=== PATIENT | male | born 1965 | race African-American/Black ===

== ENCOUNTER 2021-10-27 17:24 | Inpatient (IN) | payer SELFPAY ==
[~2021-10-27] VITALS: Ht 182.9 cm; Wt 64.0 kg
[~2021-10-27 17:24] MED LIST: AMLO10TA4 PO; ASPI-1497 PO; CLOP-31 PO; GLYB5TAB7 PO; HYDR100T26 PO; LISI-652 PO; LISI2.5T47 PO; METO25TA6 PO; METO50TA95 PO; PRAV20TA PO
[2021-10-27] MEDS ORDERED: METOCLOPRAMIDE HCL 10MG/2ML VIAL IV ONE (17:45)
[2021-10-27] MEDS ORDERED: DIPHENHYDRAMINE 12.5MG/5ML UDC PO ONE (17:45)
[2021-10-27] MEDS ORDERED: ASPIRIN 325MG EC TABLET PO ONE (18:00)
[2021-10-27 18:25] LABS: HEMATOCRIT. 35.8 % (42.0-52.0); HEMOGLOBIN. 11.4 g/dL (14.0-18.0); MEAN CORPUSCULAR HEMOGLOBIN 26.7 pg (28.0-32.0); MEAN CORPUSCULAR VOLUME 83.7 fL (80.0-94.0); MEAN PLATELET VOLUME 10.4 fl (7.4-10.4); PLATELET 157 x1000/uL (130-400); RED BLOOD CELL COUNT 4.28 mill/uL (4.7-6.1); RED CELL DISTRIBUTION WIDTH 14.1 % (11.6-14.6)
[2021-10-27 18:35] LABS: CHLORIDE 103 mEq/L (98-107)
[2021-10-27 18:39] LABS: ETHANOL BLOOD < 10 mg/dL
[2021-10-27 19:24] LABS: PLATELET ESTIMATE NORMAL
[2021-10-27] MEDS ORDERED: NICARDIPINE 100 MG in SODIUM CHLORIDE 0.9% 60 ML IV ONE (20:15)
[2021-10-27 20:40] LABS: CLARITY URINE CLEAR (CLEAR); COLOR URINE YELLOW (YELLOW); KETONES URINE 1+ (NEGATIVE); LEUKOCYTE ESTERASE URINE NEGATIVE (NEGATIVE); NITRITE URINE NEGATIVE (NEGATIVE); OCCULT BLOOD URINE 2+ (NEGATIVE); PH URINE 5.5 (4.5-8.0); PROTEIN URINE 4+ (NEGATIVE); SPECIFIC GRAVITY URINE 1.026 (1.005-1.030); UROBILINOGEN URINE 0.2 E.U./dL (0.2-1.0)
[2021-10-27 21:07] LABS: *AMPHETAMINES SCREEN URINE NEGATIVE (NEGATIVE); *BARBITURATES SCREEN URINE NEGATIVE (NEGATIVE); *BENZODIAZEPINES SCREEN URINE NEGATIVE (NEGATIVE); *COCAINE SCREEN URINE NEGATIVE (NEGATIVE); METHADONE URINE SCREEN NEGATIVE (NEGATIVE); OPIATES URINE SCREEN NEGATIVE (NEGATIVE)
[2021-10-27 21:08] LABS: CANNABINOID URINE SCREEN NEGATIVE (NEGATIVE); PHENCYCLIDINE URINE SCREEN NEGATIVE (NEGATIVE)
[2021-10-27] MEDS ORDERED: LACTATED RINGERS 1,000 ML IV SCH ×2 (22:30)
[2021-10-28] MEDS ORDERED: INSULIN REGULAR (HUMULIN R) 300UNITS/3ML VIAL IV ONE (00:15)
[2021-10-28] MEDS ORDERED: GUAIFENESIN 200MG/10ML SUGAR FREE UDC PO PRN (06:00)
[2021-10-28] MEDS ORDERED: SODIUM CHLORIDE 0.9% 1,000 ML IV SCH (06:00)
[2021-10-28] MEDS ORDERED: MAGNESIUM/ALUMINUM HYDROXIDE/SIMETHICONE 30ML UDC PO PRN (06:00)
[2021-10-28] MEDS ORDERED: DOCUSATE SODIUM 100MG CAPSULE PO PRN (06:00)
[2021-10-28] MEDS ORDERED: ACETAMINOPHEN 325MG TABLET PO PRN (06:00)
[2021-10-28] MEDS ORDERED: HYDROCODONE/ACETAMINOPHEN 5/325MG TABLET PO PRN (06:00)
[2021-10-28] MEDS: AMLODIPINE 10MG TABLET PO SCH (06:48)
[2021-10-28] MEDS: CLONIDINE 0.1MG TABLET PO PRN (07:51)
[2021-10-28] MEDS ORDERED: DEXTROSE 50% WATER 50ML SYRINGE IV PRN (09:00)
[2021-10-28] MEDS ORDERED: INSULIN GLARGINE UD 100 UNITS/ML SYR SUBCUT SCH (10:00)
[2021-10-28] MEDS: ENOXAPARIN 40MG/0.4ML SYR SUBCUT SCH (10:11)
[2021-10-28] MEDS: ASPIRIN 81MG EC TABLET PO SCH (10:12)
[2021-10-28 10:45] VITALS: BP 204/115
[2021-10-28] MEDS ORDERED: NALOXONE HCL 0.4MG/ML VIAL IV PRN (11:15)
[2021-10-28 12:00] VITALS: BP 204/115
[2021-10-28] MEDS: INSULIN LISPRO 100 UNITS/ML SUBCUT SCH ×3 (12:15→21:22)
[2021-10-28] MEDS: PANTOPRAZOLE SODIUM 40 MG/VIAL IV SCH (12:18)
[2021-10-28] MEDS: METOCLOPRAMIDE HCL 10MG/2ML VIAL IV SCH ×3 (12:18→23:53)
[2021-10-28] MEDS: METOPROLOL TARTRATE 50MG TABLET PO SCH ×2 (12:19→21:21)
[2021-10-28] MEDS: BLOOD SUGAR DIAGNOSTIC STRIP TEST SCH ×3 (12:20→21:03)
[2021-10-28 14:00] VITALS: BP 167/96
[2021-10-28] MEDS ORDERED: HYDRALAZINE HCL 50MG TABLET PO SCH (14:00)
[2021-10-28] MEDS ORDERED: INSULIN LISPRO 100 UNITS/ML SUBCUT NR (14:15)
[2021-10-28] MEDS: HYDRALAZINE HCL 100MG TABLET PO SCH ×2 (14:20→21:21)
[2021-10-28] MEDS: SODIUM CHLORIDE 0.45% 1,000 ML IV SCH ×2 (14:22→23:54)
[2021-10-28 16:00] VITALS: BP 127/76
[2021-10-28] MEDS: ONDANSETRON HCL 4MG/2ML INJ IV PRN (19:07)
[2021-10-28 20:00] VITALS: BP 130/85
[2021-10-28] MEDS ORDERED: INSULIN GLARGINE UD 100 UNITS/ML SYR SUBCUT NR (20:30)
[2021-10-28 21:50] LABS: T4 FREE 1.14 ng/dL (0.76-1.46)
[2021-10-29] VITALS: BP 128/72
[2021-10-29] MEDS: ONDANSETRON HCL 4MG/2ML INJ IV PRN (02:22)
[2021-10-29 04:00] VITALS: BP 171/105
[2021-10-29] MEDS: HYDRALAZINE HCL 100MG TABLET PO SCH ×2 (06:06→13:53)
[2021-10-29] MEDS: METOCLOPRAMIDE HCL 10MG/2ML VIAL IV SCH ×2 (06:06→12:56)
[2021-10-29] MEDS: BLOOD SUGAR DIAGNOSTIC STRIP TEST SCH ×3 (06:07→17:21)
[2021-10-29] MEDS: CLONIDINE 0.1MG TABLET PO PRN (06:07)
[2021-10-29] MEDS: INSULIN LISPRO 100 UNITS/ML SUBCUT SCH ×6 (06:08→17:15)
[2021-10-29 07:16] LABS: BASOPHILS % 0.3 % (0.0-2.0); HEMATOCRIT. 34.8 % (42.0-52.0); HEMOGLOBIN. 11.5 g/dL (14.0-18.0); LYMPHOCYTES % 10.1 % (20.0-50.0); MEAN CORPUSCULAR VOLUME 81.8 fL (80.0-94.0); MEAN PLATELET VOLUME 9.6 fl (7.4-10.4); MONOCYTES % 4.8 % (2.0-8.0); NEUTROPHILS % 84.8 % (40.0-76.0); PLATELET 145 x1000/uL (130-400); RED BLOOD CELL COUNT 4.26 mill/uL (4.7-6.1); RED CELL DISTRIBUTION WIDTH 13.8 % (11.6-14.6)
[2021-10-29 07:50] LABS: CHLORIDE 110 mEq/L (98-107)
[2021-10-29 08:00] VITALS: BP 124/73
[2021-10-29 08:00] LABS: LDL CHOLESTEROL 143 mg/dL (5-100)
[2021-10-29 08:01] LABS: HDL CHOLESTEROL 90 mg/dL (40-59)
[2021-10-29] MEDS ORDERED: CLOPIDOGREL 75MG TABLET PO SCH (09:00)
[2021-10-29] MEDS: PANTOPRAZOLE SODIUM 40 MG/VIAL IV SCH (09:17)
[2021-10-29] MEDS: ASPIRIN 81MG EC TABLET PO SCH (09:17)
[2021-10-29] MEDS: METOPROLOL TARTRATE 50MG TABLET PO SCH (09:18)
[2021-10-29] MEDS: AMLODIPINE 10MG TABLET PO SCH (09:19)
[2021-10-29] MEDS: ENOXAPARIN 40MG/0.4ML SYR SUBCUT SCH (09:19)
[2021-10-29] MEDS ORDERED: INSULIN GLARGINE UD 100 UNITS/ML SYR SUBCUT SCH ×2 (10:00→22:00)
[2021-10-29 12:00] VITALS: BP 126/85
[2021-10-29] MEDS: SODIUM CHLORIDE 0.45% 1,000 ML IV SCH (13:53)
[2021-10-29] MEDS ORDERED: POTASSIUM CHLORIDE 20MEQ TABLET SR PO NR (14:00)
[2021-10-29 16:25] VITALS: BP 129/88
[2021-10-29 16:33] VITALS: BP 129/88
[2021-10-29] MEDS ORDERED: DOXAZOSIN MESYLATE 4MG TABLET PO SCH (21:00)
[2021-10-30] MEDS ORDERED: ENOXAPARIN 30MG/0.3ML SYR SUBCUT SCH (09:00)
[2021-10-30] MEDS ORDERED: FAMOTIDINE 20MG/2ML VIAL IV SCH (09:00)
== END 2021-10-29 18:50 | disposition home or self-care (01) | DRG 199 ==
LOC: ER 17:24 → EDBEDREQTM 22:20 → EDBEDREQ 22:20 → MICUSO 22:26 → 5WST 10-28 09:31
PROVIDERS: ADMIT Hospitalist; ATTEND Hospitalist
DX: I16.0 Hypertensive urgency (principal); N17.9 Acute kidney failure, unspecified; E11.22 Type 2 diabetes mellitus with diabetic chronic kidney disease; E11.65 Type 2 diabetes mellitus with hyperglycemia; I25.10 Atherosclerotic heart disease of native coronary artery without angina pectoris; E78.5 Hyperlipidemia, unspecified; N18.9 Chronic kidney disease, unspecified; Z20.822 Contact with and (suspected) exposure to COVID-19; I73.89 Other specified peripheral vascular diseases; I12.9 Hypertensive chronic kidney disease with stage 1 through stage 4 chronic kidney disease, or unspecified chronic kidney disease; I25.2 Old myocardial infarction; Z79.899 Other long term (current) drug therapy; Z79.82 Long term (current) use of aspirin; Z91.14 Patient's other noncompliance with medication regimen; Z82.49 Family history of ischemic heart disease and other diseases of the circulatory system
CPT/HCPCS: 36415; 71045; 80053; 80061; 80305; 80320; 81003; 82010; 82550; 82962; 83036; 83605; 83880; 84439; 84443; 84484; 85025; 87426; 93005; 93306; 93970; 99285; C9113; J1650; J1815; J2405; J2765; J3490; J7050; Q0163; G0480